=== PATIENT | male | born 1985 | race Caucasian/White ===

== ENCOUNTER 2021-07-10 14:45 | Outpatient (CLI) | payer OTHER ==
[2021-07-10 16:16] VITALS: BP 100/60
--- NOTE | 2021-07-10 16:17 | SLEEP CARE CONSULTATION ---
Information from patient questionnaire entered by Milady Eason. I have reviewed and concur with the information entered by Milady Eason. This document represents the service I personally performed and the decisions made by me, Alyson Barrera MD, [facility]. History of Present Illness Service Date and Time: 07/10/2021 1445 Reason for Visit: New patient Chief Complaint: reports: Unrefreshed sleep, Snoring, Excessive daytime sleepiness, Observed pauses in breathing, Fatigue, Frequent awakenings at night Date of Onset: 2 years Usual bedtime: 10 pm Time it takes to fall asleep: 90-120 minutes Snores at night: Yes Observed to quit breathing while asleep: Yes Sleeps alone due to snoring: No Number of times waking at night: 4-6 Reasons for waking at night: reports: Other (unknown reasons) Toss, Turn, or Twitch while sleeping: Yes Recalls having dreams: Yes Usually gets out of bed at: 5 am Feels refreshed in the morning: No Morning headache: Yes (resolved around 8am) Sleepy or fatigued during the day: Yes Ever fallen asleep while driving: No Takes day naps: No Dreams during day naps: Yes Prior sleep studies: No Additional HPI information: I had the pleasure of seeing Mr. Olsen today regarding the possibility of him having a sleep disorder. As you know, he is a 36 year old gentleman who complains of loud snore, observed apneas, frequent awakenings, unrefreshed sleep, and excessive daytime sleepiness for the past 2 years. The patient tells me that he normally goes to bed around 10 pm, and it takes him approximately 1 - 2 to fall asleep. He tried melatonin and Ambien. Most recently, he was prescribed hydroxyzine. His can still sleep in the same bed. He can recall waking up on the average of 4 - 6 times during the night. Most of the time he wakes up because of no apparent reason. He has never awakened because of his own snoring, choking, or having to gasp for air. There is a lot of tossing and turning in his sleep. No somniloquy (sleep talking) or somnambulism (sleep walking). Generally he can recall having dreams. In the morning he usually gets up out of the bed around 5 a.m. not feeling refreshed nor rested. He usually has a morning headache that goes away within 1 2 hours. During the day he complains of feeling sleepy and fatigued. His score on [place] Sleepiness Scale is 8 out of 24. He never has fallen asleep while driving nor has had any accident due to sleepiness. He usually does not take naps during the day. Upon falling asleep during the day he reports having dreams. He has never had sleep paralysis, experienced cataplexy or symptoms of restless leg syndrome. He reports having impaired concentration during the day. 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 Patient is and lives in [place]. Have you smoked in the past 12 months: Yes Cigarettes per day (20/pack): 20 Years of smokin Quit date: 05/2021 Smoking Pack Years: 20.0 Alcohol use: No Caffeine use: Yes Caffeine amount and frequency: 2 cups of coffee m-f Family History Family history of sleep disordered breathing: Yes Family Hx Sleep Apnea: Mother: Snoring, Father: Snoring, Sibling: Snoring Allergies and Home Medications Drug allergies reviewed: Yes Home medication list reviewed: Yes Review of Systems Cardiovascular: denies: high blood pressure, palpitations, chest pain, irregular heart rate or pulse, leg or foot swelling, have to sleep sitting up, other Respiratory: denies: shortness of breath, wheeze, sputum production, chronic cough, other Gastrointestinal: denies: heartburn, difficulty swallowing, nausea, vomitting, diarrhea, abdominal pain, other Urinary: denies: incontinence, frequency, urgency, impotence, other Neurological: denies: headaches, seizure, head trauma, disorientation, speech dysfunction, gait or balance problems, fainting or unconsciousness, other Psychiatric: denies: Attention Deficit Hyperactivity, anxiety, depression, mood disorder, claustrophobia, other Ear/Nose/Throat: reports: wisdom teeth removed Endocrine: denies: thyroid disease, history of goiter, sluggishness, too hot or cold, excessive thirst, increased appetite, increased urination, unexplained weakness, other Musculoskeletal: denies: joint pain, neck pain, back pain, joint swelling, muscle pain or cramping, mobility problems, other Immunologic: denies: sneezing, rash, itching, allergies to food or environment, other Physical Exam Vital signs obtained and entered by: Dr. Barrera Blood Pressure: 100/60 Cuff size: regular Heart Rate: 70 O2 Saturation: 98 Height: 5 ft 9 in Weight: 175 lb Body Mass Index: 25.8 BMI Classification: Overweight Neck circumference: 15.25 Mood/affect: normal HEENT: No craniofacial malformation Nostrils: partially obstructed (right side) Turbinates: normal Septum: midline Mouth and throat: narrow oropharynx Soft palate: long Hard palate: normal Uvula: normal Uvula visualization: 50% Mallampati Class II Tongue: normal in size Tonsils: small Chin and jaw: normal size and position Neck: normal w/o lymphadenopathy or thyromegaly Heart: regular rate and rhythm Lungs: clear bilaterally Abdomen: soft Extremities: no edema or clubbing Neurologic: intact Impression and Plan IMPRESSION: 1. Obstructive Sleep Apnea-Hypopnea Syndrome, as suggested by history of loud and irregular snoring, observed cessation of breath while asleep, frequent awakenings during the night, unrefreshed sleep, cognitive impairment, and daytime hypersomnolence. Narrow oropharynx is a common predisposing factor for obstructive sleep apnea-hypopnea syndrome. I recommend proceeding to polysomnography to confirm the diagnosis and to assess severity. If he has significant sleep disordered breathing, a manual CPAP titration study will also be performed to find the optimal treatment pressure. I informed the patient of what the sleep studies involve and after some discussion, he would like to first have a home sleep apnea test (HSAT). Plan: 1. Schedule a home sleep apnea test (HSAT) 2. Avoid long distance driving or when feeling sleepy. 3. Avoid alcohol, sedative and muscle relaxant around bedtime. 4. Return for follow up after the test. Follow up with Sleep Care in: 1-2 months Visit Type: In Office Time Spent with Patient (minutes): 15 Provider Statement: I spent 100% of the Face to Face Visit with the patient with greater than 50% spent counseling the patient and coordination of care.
== END 2021-07-10 14:46 | disposition home or self-care (01) ==
LOC: SC 14:45
PROVIDERS: ATTEND Internal Medicine Pulmonary Disease
DX: R06.83 Snoring (principal); R06.81 Apnea, not elsewhere classified; G47.8 Other sleep disorders; R41.89 Other symptoms and signs involving cognitive functions and awareness; G47.10 Hypersomnia, unspecified
CPT/HCPCS: 99202; 99212

== ENCOUNTER 2021-07-17 09:05 | Outpatient (CLI) | payer OTHER | END 2021-07-17 09:06 | disposition home or self-care (01) | LOC: SC 09:05 | PROVIDERS: ATTEND Internal Medicine Pulmonary Disease | DX: G47.10 Hypersomnia, unspecified (principal); R06.83 Snoring; R06.81 Apnea, not elsewhere classified; R41.89 Other symptoms and signs involving cognitive functions and awareness; G47.8 Other sleep disorders; F17.210 Nicotine dependence, cigarettes, uncomplicated | CPT/HCPCS: 95806 ==

== ENCOUNTER 2021-08-04 08:05 | Outpatient (CLI) | payer OTHER ==
--- NOTE | 2021-08-04 08:27 | SLEEP CARE CONSULTATION ---
Information from patient questionnaire entered by Milady Eason. I have reviewed and concur with the information entered by Milady Eason. This document represents the service I personally performed and the decisions made by , Sylvie Moctezuma ARNP. History of Present Illness Service Date and Time: 08/04/2021804 Initial [place] Sleepiness Scale score: 8 (in 2020) Current [place] Sleepiness Scale score: 8 Additional HPI information: SATNAM RENDON returns for follow up and results of the recently performed home sleep study. The patient was informed of the following findings: No significant sleep disordered breathing with an average AHI of 2.9 and vinicio oxygen saturation of 85%. Fair study due to partial loss of pulse oximetry signal with possible artifact. I explained the pathophysiology behind obstructive sleep apnea. Patient does not have sleep apnea and was advised how weight gain could increase the risk of developing sleep apnea in the future. Patient has moderte snoring. Snoring can be reduced by weight loss. Weight loss is best achieved with diet consult. Patient instructed to contact PCP for referral. Snoring can also be treated with an oral appliance from a dentist. Advised to check insurance coverage. In addition, an ENT evaluation can be do to see if other treatment is indicated. Patient does not drink alcohol. Patient was cautioned about risks of drowsy driving until sleepiness symptoms resolve. Sleep Study - Results Type of Sleep Study: Home sleep study Prior sleep studies: No Polysomnography/Home Sleep Study results: Physician Impression: The quality of the study is fair due to partial loss of pulse oximetry signal. The length of the study is adequate (> 240 minutes). Please also see the tabulated and graphic data. 1. No significant sleep disordered breathing, with an AHI of 2.9/hr and vinicio SaO2 of 85%. During the study, the patient had 17 apneas (17 obstructive, 0 central, 0 mixed) and 8 hypopneas. The longest episode lasted 82.0 seconds. The patient slept mostly supine (supine AHI was 2.3 and non-supine, 5.08). 2. Hypoxemia (ICD-10 R09.02), mild, with the lowest oxygen saturation of 85 % and 24.4 minutes with SaO2 under 90%. Baseline oxygen saturation was normal (Average oxygen saturation was 96%). The recorded hypoxemia appears to be a pulse oximetry artifact. Allergies and Home Medications Home medication list reviewed: Yes (no changes) Physical Exam Vital signs obtained and entered by: no changes Heart Rate: 71 O2 Saturation: 100 Height: 5 ft 9 in Weight: 182 lb Body Mass Index: 26.9 BMI Classification: Overweight Impression and Plan 1. Suspected Obstructive Sleep Apnea-Hypopnea Syndrome, as suggested by a history of loud and irregular snoring, observed cessation of breath while asleep, morning headache, frequent awakening during the night, unrefreshed sleep, cognitive impairment, and excessive daytime sleepiness. Patient home study was fair due to partial loss of pulse oximetry signal. 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 Based upon his presenting symptoms and suboptimal HST, I think it would be beneficial to send him for an in lab study. I recommend proceeding to polysomnography to confirm the diagnosis and to assess severity. I obtained agreement to proceed. The pathophysiology of obstructive sleep apnea-hypopnea syndrome was discussed with the patient and health risks of cardiovascular and cerebrovascular disease if not treated. Risks of drowsy driving discussed in detail and patient advised to avoid long distance driving and to test puller at the first sign of drowsiness. Patient agreed to plan. * Schedule polysomnography +- manual CPAP titration study and return in 1-2 weeks after the study to discuss result and initiate therapy. * Avoid long distance driving or driving when feeling sleepy. * Avoid sedative and muscle relaxant around bedtime. * Maintain a healthy weight. * Review instructions provided by trained office staff on how to prepare for the sleep study. * Return for follow-up after sleep study completed. Counseling Topics: Weight control Visit Type: In Office Time Spent with Patient (minutes): 16 Provider Statement: I spent 100% of the Face to Face Visit with the patient with greater than 50% spent counseling the patient and coordination of care.
== END 2021-08-04 08:06 | disposition home or self-care (01) ==
LOC: SC 08:05
PROVIDERS: ATTEND Nurse Practitioner Family
DX: R09.02 Hypoxemia (principal); R06.83 Snoring; R51.9 Headache, unspecified; G47.10 Hypersomnia, unspecified; G47.8 Other sleep disorders
CPT/HCPCS: 99212

== ENCOUNTER 2021-09-15 14:34 | Outpatient (CLI) | payer OTHER ==
[2021-09-15 14:53] VITALS: BP 130/88
--- NOTE | 2021-09-15 14:53 | SLEEP CARE CONSULTATION ---
Information from patient questionnaire entered by Damari Dao. I have reviewed and concur with the information entered by Damari Dao. This document represents the service I personally performed and the decisions made by , Sylvie Moctezuma ARNP. History of Present Illness Service Date and Time: 09/15/2021 1434 Initial [place] Sleepiness Scale score: 8 (in 2020) Current [place] Sleepiness Scale score: 12 Additional HPI information: SATNAM RENDON returns for follow up and results of the recently performed polysomnography at [facility]. The patient was informed of the following findings: No significant sleep disordered breathing with an average AHI of 2.7 and vinicio oxygen saturation of 91%. Patient had severe periodic leg movement of sleep noted. I explained the pathophysiology behind obstructive sleep apnea. Patient does not have sleep apnea and was advised how weight gain could increase the risk of developing sleep apnea in the future. Patient has light to moderate snoring. Snoring can be reduced by weight loss. Weight loss is best achieved with diet consult. Patient instructed to contact PCP for referral. Snoring can also be treated with an oral appliance from a dentist. Advised to check insurance coverage. In addition, an ENT evaluation can be do to see if other treatment is indicated.[Patient does not drink alcohol. ] Patient was cautioned about risks of drowsy driving until sleepiness symptoms resolve. [Patient denies drowsy driving. ][[facility] patient education on snoring and sleep apnea given and reviewed.] Sleep Study - Results Type of Sleep Study: Polysomnography Prior sleep studies: Yes Year and Where: 08/2021 [facility] Polysomnography/Home Sleep Study results: Impression: In-laboratory Attended Nocturnal Polysomnography. The patient had good sleep efficiency. sleep architecture was abnormal for sleep fragmentation and reduced amount of time spent in slow wave sleep (N3). Respiratory monitoring showed no significant sleep-disordered breathing (AHI = 2.7) or hypoxia (vinicio oxygen saturation of 91.0%). The few respiratory events occurred mainly during supine sleep. Snoring was light to moderate in intensity. There was severe periodic leg movement of sleep contributing to the sleep fragmentation. Cardiac rhythm was normal sinus rhythm. No abnormal behavior (parasomnia) observed during the night. Allergies and Home Medications Home medication list reviewed: Yes (no changes) Review of Systems Review of systems same as previous: Yes (no changes) Physical Exam Blood Pressure: 130/88 (left arm) Cuff size: long Heart Rate: 98 O2 Saturation: 97 Height: 5 ft 9 in Weight: 186 lb Body Mass Index: 27.4 BMI Classification: Overweight Impression and Plan 1. Snoring but no significant sleep disordered breathing. Patient advised that often weight loss will reduce snoring as well as apnea risk. An oral appliance can also be used for snoring. This would require a dental consultation. Patient cautioned not to use other online appliances as can cause bite issues. A list of accredited dentists in [facility] and one local dentist who makes oral appliances is available in office. Patient is advised to check if insurance will cover. An ENT consult can also be helpful to determine if any other treatment is an option. 2. Periodic limb movement, [severe], that did fragment patients sleep. Periodic limb movement of sleep (PLMS) is characterized by episodes of repetitive limb movements that occur during sleep and usually involve the lower limbs. The etiology is unknown but can be associated with restless leg syndrome (RLS), neuropathy, low serum ferritin level, spinal cord diseases, kidney disease and rheumatological disorders. Caffeine can also aggravate PLMS and should be avoided. Sleep hygiene methods can also improve sleep as well as lifestyle changes such as regular exercise. Patient was advised that treatment may be needed at this time and he should follow up with his PCP for further evaluation. * Follow up with PCP for severe PLMs contributing to sleep fragmentation * Attempt to lose weight * Avoid alcohol consumption near bedtime * The patient is cautioned about driving until sleepiness is completely resolved. * Return as needed. Counseling Topics: Weight loss health impact Follow up with: PCP Follow up recommended for: PLMS Visit Type: In Office Time Spent with Patient (minutes): 11 Provider Statement: I spent 100% of the Face to Face Visit with the patient with greater than 50% spent counseling the patient and coordination of care.
== END 2021-09-15 14:35 | disposition home or self-care (01) ==
LOC: SC 14:34
PROVIDERS: ATTEND Nurse Practitioner Family
DX: G47.61 Periodic limb movement disorder (principal); R06.83 Snoring
CPT/HCPCS: 99212